=== PATIENT | male | born 1990 | race Caucasian/White ===

== ENCOUNTER 2019-03-04 16:01 | Emergency (ER) | payer SELFPAY ==
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
[2019-03-04] MEDS ORDERED: IOPAMIDOL 76% 100 ML INFUS BTL 0 ML ONE (16:58)
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
[2019-03-04 19:00] VITALS: BP 109/83
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
[2019-03-04] MEDS ORDERED: KET10 PO ×2 (19:45→20:29)
== END 2019-03-04 19:48 | disposition home or self-care (01) ==
LOC: ER 16:08
DX: S80.12XA Contusion of left lower leg, initial encounter (principal); V86.56XA Driver of dirt bike or motor/cross bike injured in nontraffic accident, initial encounter
CPT/HCPCS: 99283; Q9967